=== PATIENT | female | born 1945 | race Caucasian/White ===

== ENCOUNTER 2017-08-08 05:00 | Emergency (ER) | payer MEDICARE, OTHER ==
[~2017-08-08] VITALS: Ht 162.6 cm; Wt 50.0 kg
[2017-08-08] MEDS ORDERED: CARB200T PO (05:17)
[2017-08-08] MEDS ORDERED: LORA1TAB PO (05:18)
[2017-08-08] MEDS ORDERED: ACETAMINOPHEN 325 MG TABLET ONE (05:29)
[2017-08-08] MEDS ORDERED: ACETAMINOPHEN 325 MG TABLET PO ONE (05:30)
[2017-08-08] MEDS ORDERED: ONDANSETRON ODT 4 MG ONE (08:49)
[2017-08-08] MEDS ORDERED: METHOCARBAMOL 750 MG TABLET ONE (08:49)
[2017-08-08] MEDS ORDERED: ONDANSETRON ODT 4 MG PO ONE (09:00)
[2017-08-08] MEDS ORDERED: METHOCARBAMOL 750 MG TABLET PO ONE (09:00)
[2017-08-08] MEDS ORDERED: ONDANSETRON 4 MG TABLET PO ONE (09:00)
[2017-08-08 12:04] VITALS: BP 114/62
[2017-08-09] MEDS ORDERED: METH500T97 PO (17:30)
[2017-08-09] MEDS ORDERED: ONDA4TAB10 PO (17:30)
[2017-08-09] MEDS ORDERED: PRED50TA PO (17:30)
[2017-08-09] MEDS ORDERED: TRAM50TA2 PO (17:30)
== END 2017-08-08 12:06 | disposition home or self-care (01) ==
LOC: ED 08:43
DX: S39.012A Strain of muscle, fascia and tendon of lower back, initial encounter (principal); X58.XXXA Exposure to other specified factors, initial encounter; Y93.89 Activity, other specified; Y92.89 Other specified places as the place of occurrence of the external cause; Y99.8 Other external cause status; M46.1 Sacroiliitis, not elsewhere classified; Z90.710 Acquired absence of both cervix and uterus; M06.9 Rheumatoid arthritis, unspecified; M51.36 Other intervertebral disc degeneration, lumbar region
CPT/HCPCS: 72110; 72202; 99284; J7512; Q0162

== ENCOUNTER 2017-08-09 16:47 | Inpatient (IN) | payer MEDICARE, OTHER ==
[~2017-08-09] VITALS: Ht 170.2 cm; Wt 47.0 kg
[~2017-08-09 16:47] MED LIST: CARB200T PO; LORA1TAB PO
[2017-08-09] MEDS ORDERED: PRED50TA PO (17:30)
[2017-08-09] MEDS ORDERED: METH500T97 PO (17:30)
[2017-08-09] MEDS ORDERED: ONDA4TAB10 PO (17:30)
[2017-08-09] MEDS ORDERED: TRAM50TA2 PO (17:30)
[2017-08-09] MEDS ORDERED: METHOCARBAMOL 750 MG TABLET ONE (18:18)
[2017-08-09] MEDS ORDERED: METHOCARBAMOL 750 MG TABLET PO ONE (18:30)
[2017-08-09] MEDS ORDERED: hydrALAzine 20 MG/ML, 1ML IVPush PRN (23:00)
[2017-08-09 23:37] VITALS: BP 128/93
[2017-08-10] MEDS: PREDNISONE MC SCH ×2 (01:30→09:30)
[2017-08-10 02:20] VITALS: BP 132/76
[2017-08-10 08:02] VITALS: BP 126/75
[2017-08-10] MEDS ORDERED: CARBAMAZEPINE 200 MG TABLET PO SCH ×4 (09:00→21:00)
[2017-08-10] MEDS ORDERED: LORazepam 1MG TABLET PO SCH (09:00)
[2017-08-10] MEDS ORDERED: CARBAMAZEPINE 200 MG TABLET HOMEMEDPO SCH ×2 (09:00→21:00)
[2017-08-10] MEDS ORDERED: methylPREDNISolone 4mg DOSE PACK ONE (09:38)
[2017-08-10] MEDS ORDERED: LORazepam 0.5MG TABLET ONE (10:14)
[2017-08-10] MEDS: METHOCARBAMOL 750 MG TABLET PO SCH (10:25)
[2017-08-10] MEDS: LORazepam 0.5MG TABLET PO SCH (10:27)
[2017-08-10 12:59] VITALS: BP 134/70
[2017-08-10] MEDS ORDERED: ACETAMINOPHEN 325 MG TABLET ONE (13:12)
[2017-08-10] MEDS: ACETAMINOPHEN 325 MG TABLET PO PRN ×2 (13:17→17:42)
[2017-08-10] MEDS: CARBAMAZEPINE 200 MG TABLET HOMEMEDPO SCH ×2 (13:20→21:36)
[2017-08-10] MEDS ORDERED: LACTULOSE 20 GM/30 ML UDC PO PRN (16:00)
[2017-08-10] MEDS ORDERED: BISACODYL 10 MG SUPP PR PRN (16:00)
[2017-08-10 19:32] VITALS: BP 135/75
[2017-08-10] MEDS: SENNA/DOCUSATE TABLET PO SCH (21:26)
[2017-08-11 02:43] VITALS: BP 151/77
[2017-08-11 05:57] LABS: ANION GAP 7 mmol/L (5-15); CALCIUM 8.1 mg/dL (8.5-10.1); CHLORIDE 103 mmol/L (98-107); CREATININE 0.35 mg/dL (0.55-1.02)
[2017-08-11 06:49] LABS: MEAN CORPUSCULAR HEMOGLOBIN 31.2 pg (27.0-34.8); MEAN CORPUSCULAR VOLUME 94.7 fL (80-100); MEAN PLATELET VOLUME 9.8 fL (7.4-10.4); PLATELET COUNT 352 x10^3/uL (130-400); RED BLOOD COUNT 4.19 x10^6/uL (3.82-5.3)
[2017-08-11 06:52] LABS: BASOPHILS # (AUTO) 0.05 x10^3/uL (0-0.1); BASOPHILS % (AUTO) 1 % (0-1); EOSINOPHILS # (AUTO) 0.14 x10^3/uL (0-0.4); EOSINOPHILS % (AUTO) 2 % (1-7); LYMPHOCYTES % (AUTO) 17 % (22-44); MD SCAN; MONOCYTES # (AUTO) 0.81 x10^3/uL (0.2-0.8); MONOCYTES % (AUTO) 9 % (2-9); NEUTROPHILS # (AUTO) 6.85 x10^3/uL (1.8-6.8); NEUTROPHILS % (AUTO) 73 % (42-75)
[2017-08-11] MEDS: DOCUSATE 100 MG CAPSULE PO SCH (07:12)
[2017-08-11] MEDS: METHOCARBAMOL 750 MG TABLET PO SCH (07:22)
[2017-08-11] MEDS: LORazepam 0.5MG TABLET PO SCH (07:22)
[2017-08-11] MEDS: methylPREDNISolone 4mg DOSE PACK PO SCH ×2 (07:22→12:14)
[2017-08-11] MEDS: CARBAMAZEPINE 200 MG TABLET HOMEMEDPO SCH ×2 (07:23→21:36)
[2017-08-11 08:09] VITALS: BP 138/83
[2017-08-11] MEDS: ACETAMINOPHEN 325 MG TABLET PO PRN ×3 (13:16→21:42)
[2017-08-11 15:38] VITALS: BP 126/69
[2017-08-11] MEDS: SENNA/DOCUSATE TABLET PO SCH (21:35)
[2017-08-12 01:06] VITALS: BP 150/85
[2017-08-12] MEDS: ACETAMINOPHEN 325 MG TABLET PO PRN ×3 (05:57→15:06)
[2017-08-12] MEDS: DOCUSATE 100 MG CAPSULE PO SCH (07:48)
[2017-08-12] MEDS: METHOCARBAMOL 750 MG TABLET PO SCH (07:48)
[2017-08-12] MEDS: CARBAMAZEPINE 200 MG TABLET HOMEMEDPO SCH (07:48)
[2017-08-12] MEDS: LORazepam 0.5MG TABLET PO SCH (07:48)
[2017-08-12 09:00] VITALS: BP 124/72
[2017-08-12] MEDS ORDERED: METH4TAB PO ×3 (11:55)
[2017-08-12 13:16] VITALS: BP 138/79
[2017-08-12] MEDS: methylPREDNISolone 4mg DOSE PACK PO SCH (13:39)
== END 2017-08-12 17:15 | DRG 542 ==
LOC: ED 19:03 → EDIP 20:30 → 4NOR 23:06
PROVIDERS: ADMIT Hospitalist; ATTEND Hospitalist
DX: M80.08XA Age-related osteoporosis with current pathological fracture, vertebra(e), initial encounter for fracture (principal); E43 Unspecified severe protein-calorie malnutrition; Z68.1 Body mass index [BMI] 19.9 or less, adult; M06.9 Rheumatoid arthritis, unspecified; M41.9 Scoliosis, unspecified; Z88.6 Allergy status to analgesic agent; Z88.2 Allergy status to sulfonamides; Z88.8 Allergy status to other drugs, medicaments and biological substances; K59.00 Constipation, unspecified; I10 Essential (primary) hypertension; H93.3X9 Disorders of unspecified acoustic nerve; G52.1 Disorders of glossopharyngeal nerve; K64.9 Unspecified hemorrhoids; M19.90 Unspecified osteoarthritis, unspecified site; M53.3 Sacrococcygeal disorders, not elsewhere classified; Z85.72 Personal history of non-Hodgkin lymphomas; Z90.710 Acquired absence of both cervix and uterus; Z96.653 Presence of artificial knee joint, bilateral
CPT/HCPCS: 36415; 72131; 72192; 80048; 85025; 99285; J7509

== ENCOUNTER → 2017-10-30 | Outpatient (CLI) | payer MEDICARE, OTHER ==
[~2017-10-30] MED LIST changes: +HYDR-879 PO; +METH4TAB PO; +METH500T97 PO; +ONDA4TAB10 PO; +PRED50TA PO; +SENNA; +TRAM50TA2 PO
== END | disposition home or self-care (01) ==
LOC: CFH 15:03
PROVIDERS: ATTEND Family Medicine
DX: M81.0 Age-related osteoporosis without current pathological fracture (principal); N95.9 Unspecified menopausal and perimenopausal disorder
CPT/HCPCS: 77080

== ENCOUNTER 2017-11-21 17:17 | Emergency (ER) | payer MEDICARE, OTHER ==
[~2017-11-21] VITALS: Ht 170.2 cm; Wt 47.5 kg
[2017-11-21] MEDS ORDERED: LORA0.5T PO (17:41)
[2017-11-21] MEDS ORDERED: LIDO700A42 TD (17:42)
[2017-11-21] MEDS ORDERED: SODIUM CHLORIDE FLUSH 10ML SYR IVF ONE (18:00)
[2017-11-21] MEDS ORDERED: ACETAMINOPHEN 325 MG TABLET ONE (18:17)
[2017-11-21] MEDS ORDERED: ACETAMINOPHEN 500 MG TABLET PO ONE (18:30)
[2017-11-21 18:35] LABS: BASOPHILS % (AUTO) 1 % (0-1); EOSINOPHILS # (AUTO) 0.05 x10^3/uL (0-0.4); EOSINOPHILS % (AUTO) 1 % (1-7); LYMPHOCYTES # (AUTO) 1.23 x10^3/uL (1-3.4); LYMPHOCYTES % (AUTO) 15 % (22-44); MD NO; MEAN CORPUSCULAR HEMOGLOBIN 32.6 pg (27.0-34.8); MEAN CORPUSCULAR HGB CONC 33.2 g/dL (32.4-35.8); MEAN PLATELET VOLUME 9.4 fL (7.4-10.4); MONOCYTES # (AUTO) 0.45 x10^3/uL (0.2-0.8); MONOCYTES % (AUTO) 6 % (2-9); NEUTROPHILS # (AUTO) 6.23 x10^3/uL (1.8-6.8); NEUTROPHILS % (AUTO) 77 % (42-75); PLATELET COUNT 342 x10^3/uL (130-400); RED BLOOD COUNT 3.73 x10^6/uL (3.82-5.3); RED CELL DISTRIBUTION WIDTH 14.7 % (9.6-15.2)
[2017-11-21 18:42] LABS: ALANINE AMINOTRANSFERASE 13 U/L (12-78); ALBUMIN 2.6 g/dL (3.4-5.0); ANION GAP 9 mmol/L (5-15); CALCIUM 7.9 mg/dL (8.5-10.1); CHLORIDE 103 mmol/L (98-107); CREATININE 0.32 mg/dL (0.55-1.02)
[2017-11-21 18:44] LABS: ALKALINE PHOSPHATASE 120 U/L (45-117); BILIRUBIN,TOTAL 0.2 mg/dL (0.2-1.0); TOTAL PROTEIN 7.5 g/dL (6.4-8.2)
[2017-11-21] MEDS ORDERED: OMNIPAQUE 350 MG/ML, 100ML BOTTLE ONE (19:30)
[2017-11-21 19:53] VITALS: BP 107/70
== END 2017-11-21 20:29 | disposition home or self-care (01) ==
LOC: ED 20:21
DX: K59.00 Constipation, unspecified (principal); Z85.72 Personal history of non-Hodgkin lymphomas; M06.9 Rheumatoid arthritis, unspecified; Z90.710 Acquired absence of both cervix and uterus
CPT/HCPCS: 36415; 74177; 80053; 83690; 85025; 99285; Q9967

== ENCOUNTER 2018-09-24 12:48 | Emergency (ER) | payer MEDICARE ==
[~2018-09-24] VITALS: Ht 170.2 cm; Wt 48.0 kg
[~2018-09-24 12:48] MED LIST changes: +HYDR-3622 PO; -HYDR-879 PO; +LIDO700A42 TD; +LORA0.5T PO
--- NOTE | 2018-09-24 13:02 | NUR ---
PT TO ED AFTER REFERRAL [place] [facility]. PT REPORTS STARTING LAST NIGHT AT 1800, WHEN PT LOOKED UP, EYES FELT LIKE THEY WEREN'T "IN SYNC OR MOVING IN THE SAME DIRECTION." PT'S DTR STATES THAT EARLIR THIS AM, PT HAD LEFT PTOSIS BUT IT HAS MOSTLY RESOLVED NOW. PT A&OX4, STRONG AND EQUAL IN ALL 4 EXTREMITITES. SPEECH IS CLEAR. PT CONNECTED TO MONITORS. VSS. NO NEEDS EXPRESSED. CALL LIGHT WITHIN REACH. EDMD TO BS AT THIS TIME FOR ASSESSMENT.
[2018-09-24] MEDS ORDERED: ALBU8.5H8 INH ×2 (13:10)
[2018-09-24] MEDS ORDERED: L.AC1CAP6 PEG (13:10)
[2018-09-24] MEDS ORDERED: CHOL500045 PO (13:10)
[2018-09-24] MEDS ORDERED: B12/1TAB PO (13:10)
[2018-09-24] MEDS ORDERED: COD1CAPS2 PO (13:10)
[2018-09-24] MEDS ORDERED: CARB400T PO (13:10)
[2018-09-24] MEDS ORDERED: LORazepam 0.5MG TABLET ONE (13:16)
--- NOTE | 2018-09-24 13:18 | NUR ---
orders received. pt medicated per jun. awaiting further orders. no needs expressed. vss. call light wtihin reach.
[2018-09-24] MEDS ORDERED: LORazepam 0.5MG TABLET PO ONE (13:30)
--- NOTE | 2018-09-24 14:00 | NUR ---
PT IN IMAGING.
--- NOTE | 2018-09-24 14:12 | NUR ---
pt back from imaging.
--- NOTE | 2018-09-24 14:16 | NUR ---
pt resting in room. no needs expressed. vss. call light wtihin reach. pt tolerated mri well. awaiting results.
[2018-09-24 14:17] VITALS: BP 135/75
== END 2018-09-24 15:31 | disposition home or self-care (01) ==
LOC: ED 15:24
DX: G45.9 Transient cerebral ischemic attack, unspecified (principal); M06.9 Rheumatoid arthritis, unspecified; Z90.721 Acquired absence of ovaries, unilateral
CPT/HCPCS: 70551; 99284